=== PATIENT | male | born 2000 | race Two or more races ===

== ENCOUNTER 2023-10-26 19:04 | Emergency (ER) | payer OTHER ==
[~2023-10-26] VITALS: Ht 167.6 cm; Wt 69.9 kg
[2023-10-27 01:31] LABS: HEMATOCRIT 41.6 % (39.0-48.0); HEMOGLOBIN 14.5 g/dL (13-16.00); MEAN CELL VOLUME 86.1 fL (80.0-100.00); MEAN CORPUSCULAR HEMOGLOBIN 29.9 pg (27.00-32.0); MEAN CORPUSCULAR HGB CONC 34.8 g/dl (32.0-36.0); PLATELET COUNT 208 K/uL (150-450); RED BLOOD COUNT 4.84 M/uL (4.00-6.00); RED CELL DISTRIBUTION WIDTH 12.4 % (11.5-14.5)
[2023-10-27 01:43] LABS: URINE APPEARANCE Clear; URINE BILIRRUBIN Negative (NEGATIVE); URINE BLOOD Negative; URINE COLOR Yellow; URINE GLUCOSE Negative (NEGATIVE); URINE LEUKOCYTE Negative; URINE NITRATE Negative; URINE PROTEIN Negative (NEGATIVE); URINE UROBILINOGEN 0.2 E.U./dl
[2023-10-27 01:47] LABS: URINE BACTERIA 32.7 uL (0.0-1933); URINE RBC 4.7 uL (0.0-20.8)
[2023-10-27 01:48] LABS: CALCIUM 9.1 mg/dL (8.5-10.1); CREATININE SERUM 1.03 mg/dL (0.70-1.30); GFR 91.16; POTASSIUM 3.54 mEq/L (3.5-5.1)
[2023-10-27 02:05] LABS: URINE EPITHELIAL CELLS 0.4 uL (0.0-38.8)
[2023-10-27] MEDS ORDERED: KETO10TA2 PO (03:07)
== END 2023-10-27 03:25 ==
LOC: ER 19:05
PROVIDERS: General Practice
DX: R10.2 Pelvic and perineal pain (principal)